=== PATIENT | male | born 2000 | race Caucasian/White ===

== ENCOUNTER 2022-10-14 18:08 | Emergency (ER) | payer OTHER ==
--- NOTE | 2022-10-14 19:43 | ED ---
Overdose HPI - General Source: patient, RN notes reviewed Mode of arrival: ambulatory Limitations: no limitations - History of Present Illness MD Complaint: accidental overdose <Helen Ga - Last Filed: 10/14/22 19:41> <Sylvie Yo - Last Filed: 10/15/22 03:33> - General Chief Complaint: Overdose Stated Complaint: possible overdose Time Seen by Provider: 10/14/22 19:35 - History of Present Illness Initial Comments: This is a 22-year-old male who presents to the emergency department for concerns of an unintentional overdose. States that around 6 PM this evening, he went to smoke marijuana. Believes that this may have been laced with another substance, as he is now experiencing feelings of a racing heart and blurry vision. Reports using marijuana regularly and has never felt like this before from just smoking marijuana. (Helen Ga) Quick note reviewed: This is a 22-year-old male who presents the emergency department with a chief complaint of unintentional overdose. Patient reports that he was smoking marijuana approximately 6 PM this evening. He reports worsening feelings of palpitations, dizziness, lightheadedness immediately after taking a hit of marijuana. He reports he used to smoke marijuana regularly however quit for a few months as a constant anxiety. Today was his first use couple months. (Sylvie Yo) - Related Data Home Medications Medication Instructions Recorded Confirmed No Known Home Medications 07/21/22 07/21/22 Allergies Allergy/AdvReac Type Severity Reaction Status Date / Time No Known Allergies Allergy Verified 10/14/22 18:55 Review of Systems ROS Other: All systems not noted in ROS Statement are negative. <Helen Ga - Last Filed: 10/14/22 19:41> ROS Other: All systems not noted in ROS Statement are negative. <Sylvie Yo - Last Filed: 10/15/22 03:33> ROS Statement: Those systems with pertinent positive or pertinent negative responses have been documented in the HPI. Past Medical History Additional Past Medical History / Comment(s): hypokalemia History of Any Multi-Drug Resistant Organisms: None Reported Past Surgical History: No Surgical Hx Reported Additional Past Anesthesia/Blood Transfusion Reaction / Comment(s): HAS NEVER HAD ANESTH. Past Psychological History: No Psychological Hx Reported Smoking Status: Vaper Past Alcohol Use History: None Reported, Occasional Past Drug Use History: Marijuana - Past Family History Father Additional Family Medical History / Comment(s): "HEART ISSUES" <Helen Ga - Last Filed: 10/14/22 19:41> General Exam <Helen Ga - Last Filed: 10/14/22 19:41> <Sylvie Yo - Last Filed: 10/15/22 03:33> - General Exam Comments Initial Comments: Visual Physical Exam Vital signs reviewed General: Well-appearing, nontoxic, no acute distress. Head: Normocephalic, atraumatic Eyes: PERRLA, EOMI ENT: Airway patent Chest: Nonlabored breathing Skin: No visual rash, normal skin tone Neuro: Alert and oriented 3 Musculoskeletal: No gross abnormalities (Helen Ga) General: Alert, in no acute distress Head: atraumatic normocephalic. Eyes PERRL, EOMI intact, mucous membranes moist Respiratory: Lungs clear to auscultation bilaterally Cardiovascular: Rate regular rate and rhythm Abdominal: Soft without guarding or rebound Extremities: Normal inspection with full range of motion and normal capillary refill Neuroogic: alert and oriented 3, CN II-XII intact, able to ambulate with steady gait Skin: warm dry and intact with normal color (Sylvie Yo) Course <Sylvie Yo - Last Filed: 10/15/22 03:33> Vital Signs 10/14/22 10/14/22 10/14/22 18:55 21:55 22:28 Temperature 98.9 F 98.3 F 98.0 F Pulse Rate 136 H 87 80 Respiratory 20 18 18 Rate Blood Pressure 118/60 130/72 120/77 O2 Sat by Pulse 99 100 100 Oximetry - Reevaluation(s) Reevaluation #1: 10/14/22 22:14 Patient placed in the ER about 22. Patient reports resolution of symptoms. Patient is agreeable with the plan for discharge home. (Sylvie Yo) Reevaluation #2: 10/14/22 22:36 I interpreted the following: EKG performed at 20:22 rate 107 bpm and sinus tachycardia HI interval 146, QRS patient 93, QT/QTc 323/385 Upon room placement to room 22 patient reports resolution of all symptoms. He is requesting to be discharged home at this time. (Sylvie Yo) Medical Decision Making <Sylvie Yo - Last Filed: 10/15/22 03:33> - Medical Decision Making Was pt. sent in by a medical professional or institution (JAZMÍN Huang, STAVE INSPECTOR, urgent care, hospital, or snf...) When possible be specific @ -[No] Did you speak to anyone other than the patient for history (EMS, parent, family, police, friend...)? What history was obtained from this source @ -[No] Did you review nursing and triage notes (agree or disagree)? Why? @ -[I reviewed and agree with nursing and triage notes] Were old charts reviewed (outside hosp., previous admission, EMS record, old EKG, old radiological studies, urgent care reports/EKG's, snf records)? Report findings @ -[No old charts were reviewed] Differential Diagnosis (chest pain, altered mental status, abdominal pain women, abdominal pain men, vaginal bleeding, weakness, fever, dyspnea, syncope, headache, dizziness, GI bleed, back pain, seizure, CVA, palpatations, mental health, musculoskeletal)? @ -[not applicable] EKG interpreted by me (3pts min.). @ -[As above] X-rays interpreted by me (1pt min.). @ -[None done] CT interpreted by me (1pt min.). @ -[None done] U/S interpreted by me (1pt. min.). @ -[None done] What testing was considered but not performed or refused? (CT, X-rays, U/S, labs)? Why? @ -[None] What meds were considered but not given or refused? Why? @ -[None] Did you discuss the management of the patient with other professionals (professionals i.e. JAZMÍN Huang, STAVE INSPECTOR, lab, RT, psych nurse, social service worker, steam room attendant, teacher, senior major gifts officer, rn case management)? Give summary @ -[No] Was smoking cessation discussed for >3mins.? @ -[No] Was critical care preformed (if so, how long)? @ -[No] Were there social determinants of health that impacted care today? How? (Homelessness, low income, unemployed, alcoholism, drug addiction, transportation, low edu. Level, literacy, decrease access to med. care, nursing home, rehab)? @ -[No] Was there de-escalation of care discussed even if they declined (Discuss DNR or withdrawal of care, Hospice)? DNR status @ -[No] What co-morbidities impacted this encounter? (DM, HTN, Smoking, COPD, CAD, Cancer, CVA, ARF, Chemo, Hep., AIDS, mental health diagnosis, sleep apnea, morbid obesity)? @ -[None] Was patient admitted / discharged? Hospital course, mention meds given and route, prescriptions, significant lab abnormalities, going to OR and other pertinent info. @ Discharged This is a pleasant 22-year-old male who presents the emergency department with palpitations. Patient had a thorough history and physical exam performed while in the ED. Upon quick note evaluation patient was tachycardic and appearing anxious. When I evaluate the patient after room placement to bed 22 patient reports resolution of symptoms and is localized that he would like to be discharged home at that time. Return precautions were discussed at length. Rectal history of marijuana use were discussed with the patient. Verbalized understanding all questions were addressed. Patient was discharged home. Discussed with Dr. Black who agrees with plan of care Undiagnosed new problem with uncertain prognosis? @ -[No] Drug Therapy requiring intensive monitoring for toxicity (Heparin, Nitro, Insulin, Cardizem)? @ -[No] Were any procedures done? @ -[No] Diagnosis/symptom? @ -Marijuana Use Acute, or Chronic, or Acute on Chronic? @ -Acute Uncomplicated (without systemic symptoms) or Complicated (systemic symptoms)? @ -Uncomplicated Side effects of treatment? @ -[No] Exacerbation, Progression, or Severe Exacerbation? @ -[No] Poses a threat to life or bodily function? How? (Chest pain, [place], [place], pneumonia, PE, COPD, DKA, ARF, appy, cholecystitis, CVA, Diverticulitis, Homicidal, Suicidal, threat to staff... and all critical care pts) @ Low likelihood (Sylvie Yo) - Lab Data Lab Results 10/14/22 Range/Units 20:25 Urine Opiates Screen Not Detected (NotDetected) Ur Oxycodone Screen Not Detected (NotDetected) Urine Methadone Screen Not Detected (NotDetected) Ur Propoxyphene Screen Not Detected (NotDetected) Ur Barbiturates Screen Not Detected (NotDetected) U Tricyclic Antidepress Not Detected (NotDetected) Ur Phencyclidine Scrn Not Detected (NotDetected) Ur Amphetamines Screen Not Detected (NotDetected) U Methamphetamines Scrn Not Detected (NotDetected) U Benzodiazepines Scrn Not Detected (NotDetected) Urine Cocaine Screen Not Detected (NotDetected) U Marijuana (THC) Screen Detected H (NotDetected) Disposition <Helen aG - Last Filed: 10/14/22 19:41> Is patient prescribed a controlled substance at d/c from ED?: No Time of Disposition: 22:15 <Sylvie Yo - Last Filed: 10/15/22 03:33> Clinical Impression: Marijuana use Disposition: HOME SELF-CARE Condition: Stable Instructions (If sedation given, give patient instructions): Medicinal Use of Cannabis (ED), Cannabis Abuse (ED) Additional Instructions: Please return to the nearest emergency department if symptoms worsen or persist Referrals: None,Stated [Primary Care Provider] - 1-2 days
[2022-10-14 21:01] LABS: Amphetamine Screen,Urine Not Detected (NotDetected); Barbiturate Screen,Urine Not Detected (NotDetected); Benzodiazepines Screen,Urine Not Detected (NotDetected); Cocaine Screen,Urine Not Detected (NotDetected); Methadone Screen, Urine Not Detected (NotDetected); Opiate Screen,Urine Not Detected (NotDetected); Oxycodone Screen, Urine Not Detected (NotDetected); Phencyclidine Screen,Urine Not Detected (NotDetected); Tricyclic Antidepressant,Urine Not Detected (NotDetected); Urn Cannabinoid Scrn Detected (NotDetected)
[2022-10-14 21:59] VITALS: RESP 18
[2022-10-14 22:34] VITALS: BP 120/77; PULSE 80; TEMP 98
== END 2022-10-14 22:34 | disposition home or self-care (01) ==
LOC: EC 18:08
DX: F12.90 Cannabis use, unspecified, uncomplicated (principal); F17.290 Nicotine dependence, other tobacco product, uncomplicated
CPT/HCPCS: 80306; 93005; 99284

== ENCOUNTER 2023-04-10 13:07 | Emergency (ER) | payer OTHER ==
--- NOTE | 2023-04-10 13:46 | ED ---
General Adult HPI - General Source: patient, RN notes reviewed Mode of arrival: ambulatory Limitations: no limitations <Russel Kebede - Last Filed: 04/10/23 13:43> - General Source: patient, RN notes reviewed Mode of arrival: ambulatory Limitations: no limitations <[place] Schultz - Last Filed: 04/10/23 17:50> - General Stated complaint: Abd Pain Time Seen by Provider: 04/10/23 13:43 - History of Present Illness Initial comments: 22-year-old male presents emergency department with chief complaint right-sided chest pain. Patient states he has been sick last few days. Patient states that the pain is worse when he lays on his side. No prior cardiac or lung disease. Patient denies abdominal pain no fevers chills no nausea vomiting. (Russel Kebede) 22-year-old male presents emergency department for evaluation of right-sided chest pain. He states that this started today. He states it is worse when he lays on his side. He does report upper respiratory symptoms for the past 3 days. He states that he has been coughing frequently and is congested. He reports a fever at home yesterday. He denies shortness of breath, nausea, vomiting. ([place] Schultz) - Related Data Home Medications Medication Instructions Recorded Confirmed No Known Home Medications 07/21/22 07/21/22 Allergies Allergy/AdvReac Type Severity Reaction Status Date / Time No Known Allergies Allergy Verified 04/10/23 14:08 Review of Systems ROS Other: All systems not noted in ROS Statement are negative. <Russel Kebede - Last Filed: 04/10/23 13:43> ROS Other: All systems not noted in ROS Statement are negative. <[place] Schultz - Last Filed: 04/10/23 17:50> ROS Statement: Those systems with pertinent positive or pertinent negative responses have been documented in the HPI. Past Medical History Additional Past Medical History / Comment(s): hypokalemia History of Any Multi-Drug Resistant Organisms: None Reported Past Surgical History: No Surgical Hx Reported Additional Past Anesthesia/Blood Transfusion Reaction / Comment(s): HAS NEVER HAD ANESTH. Past Psychological History: No Psychological Hx Reported Smoking Status: Vaper Past Alcohol Use History: None Reported, Occasional Past Drug Use History: Marijuana - Past Family History Father Additional Family Medical History / Comment(s): "HEART ISSUES" <Russel Kebede - Last Filed: 04/10/23 13:43> General Exam <Russel Kebede - Last Filed: 04/10/23 13:43> Limitations: no limitations General appearance: alert, in no apparent distress Head exam: Present: atraumatic, normocephalic, normal inspection Eye exam: Present: normal appearance, PERRL, EOMI. Absent: scleral icterus, conjunctival injection, periorbital swelling ENT exam: Present: normal exam, mucous membranes moist, TM's normal bilaterally, normal external ear exam Neck exam: Present: normal inspection. Absent: tenderness, meningismus, lymphadenopathy Respiratory exam: Present: normal lung sounds bilaterally, chest wall tenderness (right medial chest wall TTP ). Absent: respiratory distress, wheezes, rales, rhonchi, stridor, accessory muscle use Cardiovascular Exam: Present: regular rate, normal rhythm, normal heart sounds. Absent: systolic murmur, diastolic murmur, rubs, gallop, clicks GI/Abdominal exam: Present: soft, normal bowel sounds. Absent: distended, tenderness, guarding, rebound, rigid <[place] Schultz - Last Filed: 04/10/23 17:50> - General Exam Comments Initial Comments: Visual Physical Exam Vital signs reviewed General: Well-appearing, nontoxic, no acute distress. Head: Normocephalic, atraumatic Eyes: PERRLA, EOMI ENT: Airway patent Chest: Nonlabored breathing Skin: No visual rash, normal skin tone Neuro: Alert and oriented 3 Musculoskeletal: No gross abnormalities (Russel Kebede) Course Vital Signs 04/10/23 04/10/23 04/10/23 14:08 17:31 17:34 Temperature 99 F 98.4 F Pulse Rate 95 90 Pulse Rate [ 90 Pulse Oximetery ] Respiratory 16 18 Rate Blood Pressure 118/83 120/72 O2 Sat by Pulse 100 100 Oximetry Medical Decision Making <Russel Kebede - Last Filed: 04/10/23 13:43> <[place] Schultz - Last Filed: 04/10/23 17:50> - Medical Decision Making I completed the quick note portion of this chart signed Russel Kebede PA-C (Russel Kebede) Was pt. sent in by a medical professional or institution (JAZMÍN Huang, DIRECT MAIL COORDINATOR, urgent care, hospital, or snf...) When possible be specific @ -No Did you speak to anyone other than the patient for history (EMS, parent, family, police, friend...)? What history was obtained from this source @ -No Did you review nursing and triage notes (agree or disagree)? Why? @ -I reviewed and agree with nursing and triage notes Were old charts reviewed (outside hosp., previous admission, EMS record, old EKG, old radiological studies, urgent care reports/EKG's, snf records)? Report findings @ -No old charts were reviewed Differential Diagnosis (chest pain, altered mental status, abdominal pain women, abdominal pain men, vaginal bleeding, weakness, fever, dyspnea, syncope, headache, dizziness, GI bleed, back pain, seizure, CVA, palpatations, mental health, musculoskeletal)? @ -Differential Chest Pain: Stable Angina, Unstable Angina, STEMI, NSTEMI Aortic Dissection, Pneumothorax, Musculoskeletal, Esophageal Spasm GERD, Cholecystitis, Pancreatitis, Zoster, this is not meant to be an all-inclusive list. EKG interpreted by me (3pts min.). @ -EKG at 1543 shows sinus rhythm with sinus arrhythmia rate 72, HI 157, QRS 96, QTQTc [id number] X-rays interpreted by me (1pt min.). @ -X-ray shows no acute infiltrate CT interpreted by me (1pt min.). @ -None done U/S interpreted by me (1pt. min.). @ -None done What testing was considered but not performed or refused? (CT, X-rays, U/S, labs)? Why? @ -None What meds were considered but not given or refused? Why? @ -None Did you discuss the management of the patient with other professionals (professionals i.e. JAZMÍN Huang, DIRECT MAIL COORDINATOR, lab, RT, psych nurse, social worker masters, dairy machine operator farmworker, teacher, postal delivery officer, case consultant)? Give summary @ -No Was smoking cessation discussed for >3mins.? @ -No Was critical care preformed (if so, how long)? @ -No Were there social determinants of health that impacted care today? How? (Homelessness, low income, unemployed, alcoholism, drug addiction, transportation, low edu. Level, literacy, decrease access to med. care, nursing home, rehab)? @ -No Was there de-escalation of care discussed even if they declined (Discuss DNR or withdrawal of care, Hospice)? DNR status @ -No What co-morbidities impacted this encounter? (DM, HTN, Smoking, COPD, CAD, Cancer, CVA, ARF, Chemo, Hep., AIDS, mental health diagnosis, sleep apnea, morbid obesity)? @ -None Was patient admitted / discharged? Hospital course, mention meds given and route, prescriptions, significant lab abnormalities, going to OR and other pertinent info. @ -Discharged. Patient presented to the emergency department for evaluation of right-sided chest wall pain and cough, congestion 3 days. He is worse with lying on his side. Chest x-ray obtained shows no acute process. Covid, RSV negative. Influenza A+. Patient denies any shortness of breath. Vital signs stable. Patient given a dose of Toradol for his discomfort. He states that he is in minimal pain at this time. Patient will be discharged home with symptomatic treatment including Tylenol Motrin. Patient advised to follow-up with his PCP. Strict return precautions discussed. Patient stable at time of discharge. Case discussed with Dr. Black. Undiagnosed new problem with uncertain prognosis? @ -No Drug Therapy requiring intensive monitoring for toxicity (Heparin, Nitro, Insulin, Cardizem)? @ -No Were any procedures done? @ -No Diagnosis/symptom? @ -Influenza A, chest wall pain Acute, or Chronic, or Acute on Chronic? @ -Acute Uncomplicated (without systemic symptoms) or Complicated (systemic symptoms)? @ -uncomplicated Side effects of treatment? @ -No Exacerbation, Progression, or Severe Exacerbation? @ -No Poses a threat to life or bodily function? How? (Chest pain, [place], [place], pneumonia, PE, COPD, DKA, ARF, appy, cholecystitis, CVA, Diverticulitis, Homicidal, Suicidal, threat to staff... and all critical care pts) @ -No ([place] Schultz) - Lab Data Lab Results 04/10/23 Range/Units 15:15 Influenza Type A (PCR) Detected A (Not Detectd) Influenza Type B (PCR) Not Detected (Not Detectd) RSV (PCR) Not Detected (Not Detectd) SARS-CoV-2 (PCR) Not Detected (Not Detectd) Disposition <Russel Kebede - Last Filed: 04/10/23 13:43> Is patient prescribed a controlled substance at d/c from ED?: No <[place] Schultz - Last Filed: 04/10/23 17:50> Clinical Impression: Influenza A, Chest wall pain Disposition: HOME SELF-CARE Condition: Stable Instructions (If sedation given, give patient instructions): Costochondritis (ED), Influenza (ED) Additional Instructions: Alternate Tylenol and Motrin for discomfort. Please follow up with your primary care provider. Return to the emergency department for new or worsening symptoms. Referrals: None,Stated [REFERRING] - 1-2 days
--- NOTE | 2023-04-10 13:48 | XR ---
EXAMINATION TYPE: XR chest 2V DATE OF EXAM: 04/10/2023 COMPARISON: None INDICATION: Pain TECHNIQUE: Frontal and lateral views of the chest are obtained. FINDINGS: The heart size is normal. The pulmonary vasculature is normal. The lungs are clear. IMPRESSION: 1. No acute pulmonary process.
[2023-04-10] MEDS ORDERED: KETOROLAC 15 MG/ML 1 ML VIAL IM STA (17:04)
[2023-04-10 17:47] VITALS: BP 120/72; PULSE 90; RESP 18; TEMP 98.4
== END 2023-04-10 17:53 | disposition home or self-care (01) ==
LOC: EC 13:07
DX: J10.1 Influenza due to other identified influenza virus with other respiratory manifestations (principal); I49.8 Other specified cardiac arrhythmias; F17.290 Nicotine dependence, other tobacco product, uncomplicated; F12.90 Cannabis use, unspecified, uncomplicated; Z20.822 Contact with and (suspected) exposure to COVID-19
CPT/HCPCS: 71046; 87636; 93005; 99284